=== PATIENT | male | born 1980 | race Hispanic/Latino ===

== ENCOUNTER 2017-11-07 10:47 | Emergency (ER) | payer OTHER ==
[2017-11-07 11:01] VITALS: BP 146/80; PULSE 84; RESP 18; TEMP 98.6; O2SAT 98
[2017-11-07] MEDS ORDERED: Tdap Vaccine 0.5 ml Vial (10-64 yrs) IM ONE ×2 (11:11→11:19)
[2017-11-07] MEDS ORDERED: Bacitracin 500 Units/gm Oint Foilpak UD TOP STA (11:12)
--- NOTE | 2017-11-07 11:13 | C.PDOC ---
History Of Present Illness 37 y/o male presents to the ED for evaluation of wound to the bottom of left foot sustained this morning. Patient states while at work, he stepped on a 100 year old, dirty, [place] nail. The nail went through the left shoe and punctured his foot. Last tetanus booster was over 10 years ago. Otherwise he denies any numbness, weakness, tingling, or other complaints. Time Seen by Provider: 11/07/17 10:58 Chief Complaint (Nursing): Lower Extremity Problem/Injury History Per: Patient History/Exam Limitations: no limitations Onset/Duration Of Symptoms: Hrs Current Symptoms Are (Timing): Still Present Past Medical History Reviewed: Historical Data, Nursing Documentation, Vital Signs Vital Signs: Last Vital Signs Temp 98.6 F 11/07/17 10:57 Pulse 84 11/07/17 10:57 Resp 18 11/07/17 10:57 BP 146/80 11/07/17 10:57 Pulse Ox 98 11/07/17 11:24 - Medical History PMH: No Chronic Diseases Surgical History: Hernia Repair Family History: States: No Known Family Hx - Social History Hx Alcohol Use: No Hx Substance Use: No - Immunization History Hx Tetanus Toxoid Vaccination: No Hx Influenza Vaccination: No Hx Pneumococcal Vaccination: No Review Of Systems Except As Marked, All Systems Reviewed And Found Negative. Constitutional: Negative for: Fever Musculoskeletal: Positive for: Foot Pain Skin: Positive for: Lesions (to bottom of left foot) Neurological: Negative for: Weakness, Numbness, Incoordination Physical Exam - Physical Exam Appears: Well, Non-toxic, No Acute Distress Skin: Normal Color, Warm, Dry Head: Atraumatic, Normacephalic Eye(s): bilateral: Normal Inspection, PERRL, EOMI Neck: Supple Extremity: Normal ROM (to B/L lower extremities), No Tenderness, No Deformity, No Swelling, Other (Puncture wound to bottom of left foot) Pulses: Left Dorsalis Pedis: Normal, Right Dorsalis Pedis: Normal Neurological/Psych: Oriented x3, Normal Speech, Normal Cranial Nerves, Normal Motor, Normal Sensation Gait: Steady ED Course And Treatment O2 Sat by Pulse Oximetry: 98 (RA) Pulse Ox Interpretation: Normal Progress Note: Area soaked. Tetanus booster given in the ED. Bacitracin and sterile dressing applied. Risks vs benefits were discussed regarding antibiotic treatment with Ciprofloxacin, patient chooses to complete course of Cipro. Patient will be discharged home with prescription for antibiotic. Disposition Counseled Patient/Family Regarding: Diagnosis, Need For Followup, Rx Given - Disposition Disposition: HOME/ ROUTINE Disposition Time: 11:13 Condition: STABLE Additional Instructions: Follow-up with PMD within 2 days. Return to ED if condition worsens. Your tetanus was updated. Take full course of antibiotics. Keep wound clean and covered Prescriptions: Ciprofloxacin [Cipro] 500 mg PO BID #14 tab Instructions: Wound Care (DC) Forms: [employer] ([place]), Work Excuse - POA Present On Arrival: None - Clinical Impression Clinical Impression: Puncture wound of foot - Scribe Statement The provider has reviewed the documentation as recorded by the Scribe (Janna Guerra) Provider Attestation: All medical record entries made by the Scribe were at my direction and personally dictated by me. I have reviewed the chart and agree that the record accurately reflects my personal performance of the history, physical exam, medical decision making, and the department course for this patient. I have also personally directed, reviewed, and agree with the discharge instructions and disposition.
[2017-11-07] MEDS ORDERED: Bacitracin 500 Units/gm Oint Foilpak UD ONE (11:19)
== END 2017-11-07 11:48 | disposition home or self-care (01) ==
LOC: C.ER 10:47
DX: S91.332A Puncture wound without foreign body, left foot, initial encounter (principal); W45.0XXA Nail entering through skin, initial encounter; Y92.89 Other specified places as the place of occurrence of the external cause; Y99.0 Civilian activity done for income or pay